=== PATIENT | male | born 1940 | race Caucasian/White ===

== ENCOUNTER → 2018-05-11 10:16 | Outpatient (CLI) | payer MEDICARE, OTHER, SELFPAY ==
--- NOTE | 2018-05-11 | DI.US.S_ITS ---
PROCEDURE: US RENAL COMPLETE INDICATIONS: HISTORY OF URINARY TRACT INFECTION/BENIGN PROSTATIC HYPERTRO TECHNIQUE: Real-time scanning was performed of the kidneys and bladder, with image documentation. COMPARISON: None. FINDINGS: Kidneys: Kidneys are normal in size. Right kidney measures 11.1 cm long; left kidney measures 11.3 cm long. Right renal cortical thickness is 1.1 cm; left renal cortical thickness is 1.1 cm. Renal cortical echotexture is normal. No hydronephrosis or nephrolithiasis. There is a 1.5 x 1.3 x 1.3 cm oval circumscribed hypoechoic cyst with posterior acoustic enhancement in the inferior left kidney, which demonstrates no vascularity on Doppler ultrasound.. Bladder: Pre-void bladder volume is 169 mL. Post-void residual is 60 mL. There is a mobile bladder stone measuring 1.1 cm. There is a possible 1.1 cm hyperechoic nonmobile mass seen along the posterior bladder wall. Miscellaneous: No free pelvic fluid. Prostate measures 6.1 x 6.6 x 5.8 cm in size and indents the adjacent bladder wall. IMPRESSION: 1. Possible 1.1 cm posterior bladder wall mass and 1.1 cm mobile bladder calculus. Recommend CT urogram, Urologic consultation, and/or cystoscopy for further assessment. 2. No hydronephrosis. 1.5 cm probable cyst in the inferior left kidney; attention on followup exams suggested. Dictated by: Moises WAN Interpreted: Oswald Segura MD on 05/11/2018 at 12:14 Approved by: Oswald Segura M.D. on 05/11/2018 at 17:23
== END ==
PROVIDERS: PCP Internal Medicine; Visit Provider Internal Medicine
DX: N40.0 Benign prostatic hyperplasia without lower urinary tract symptoms (principal); N28.1 Cyst of kidney, acquired; N21.0 Calculus in bladder; Z87.440 Personal history of urinary (tract) infections
CPT/HCPCS: 76770

== ENCOUNTER → 2018-06-17 14:20 | Outpatient (CLI) | payer MEDICARE, OTHER, SELFPAY ==
--- NOTE | 2018-06-17 | DI.CT.S_ITS ---
PROCEDURE: CT ABDOMEN PELVIS WO/W CON INDICATIONS: BLADDER MASS TECHNIQUE: Optional 5 mm thick noncontrast images acquired from the diaphragm to the symphysis pubis. After the administration of intravenous contrast, 5 mm thick images acquired from the diaphragm to the symphysis pubis after a 10-minute delay. 2 mm thick coronal and sagittal reformats were then performed of the kidneys and ureters. For radiation dose reduction, the following was used: automated exposure control, adjustment of mA and/or kV according to patient size. COMPARISON: [facility], , RENAL COMPLETE, 05/11/2018, 10:25. FINDINGS: Image quality: Excellent. Lung bases: Lung bases are clear on the left but at the uppermost imaging margin, virtually at the junction of the middle and lower thirds of the right posterior medial lung parenchyma there is an ovoid mass like lesion only partially included at the uppermost imaging margin. This measures up to 3.7 cm AP and 2.1 cm transverse. It is in a position that would be obscured by the right hilum on frontal view the chest plain film projection and by the spine on the lateral view. Heart size is normal. Urinary system: Both kidneys are normal in size, without hydronephrosis or nephrolithiasis on pre-contrast images. No perinephric fat stranding. There is normal bilateral renal enhancement. Renal calyces appear normal in morphology when filled with contrast. Opacified portions of both ureters demonstrate normal caliber. Bladder wall thickness is except for the presence of a small angular mass that measures approximately 8 x 9 mm in maximal dimension which appears to emanate from the mucosal surface of the left posterior bladder wall immediately adjacent to the distal left ureteral insertion. The left ureter itself is not dilated, and therefore this mass does not appear to impinge upon the orifice of the left ureter at this time.. No calcified bladder stones. Other solid organs: Liver is normal in size and enhancement. Gallbladder has been previously resected. Biliary system is non dilated. Pancreas enhances normally. Spleen is normal in size and enhancement. No adrenal nodules. Peritoneum and bowel: Bowel loops demonstrate normal wall thickness and caliber. No free fluid or air. Nodes and vessels: No retroperitoneal or mesenteric adenopathy by size criteria. Aorta and inferior vena cava are normal in size. Abdominal wall: No ventral hernias. Pelvis: No pathologic free pelvic fluid. No inguinal hernias or adenopathy. Bones: No suspicious bony lesions. No vertebral body compression fractures. IMPRESSION: 1. 8 x 9 mm mucosal mass lesion adjacent to the left ureteral orifice within the bladder lumen, representing areas recent sonographic concern from ultrasound study 05/11/18. 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 2. There is an unexpected finding within the uppermost margin of the medial posterior right lung that is included on this study of a mass which may be malignant in the right lower lobe. The visualized portion of this mass measures up to 3.7 by 2.1 cm and a dedicated chest CT is recommended to more accurately assess this area. This likely is unrelated to the bladder finding unless prior smoking history is the etiology of both. This is highly unlikely to represent evidence of metastatic disease from a small urothelial mass discussed above. Dictated by: Jose Hidalgo M.D. on 06/17/2018 at 16:11 Approved by: Jose Hidalgo M.D. on 06/17/2018 at 16:18
[2018-06-17 15:03] LABS: BUN Creatinine Ratio 22.7 (6-22); Blood Urea Nitrogen 25 mg/dL (9-20); Estimated Glomerular Filt Rate > 60.0 mL/min (>60)
== END ==
PROVIDERS: PCP Internal Medicine; Visit Provider Internal Medicine
DX: N32.89 Other specified disorders of bladder (principal); R91.8 Other nonspecific abnormal finding of lung field
CPT/HCPCS: 36415; 74178; 82565; 84520; Q9967

== ENCOUNTER → 2018-06-22 10:56 | Outpatient (CLI) | payer MEDICARE, OTHER, SELFPAY ==
--- NOTE | 2018-06-22 11:12 | DI.CT.S_ITS ---
PROCEDURE: CT CHEST WO CON INDICATIONS: Other nonspecific abnormal finding of lung field TECHNIQUE: Noncontrast 5 mm thick sections acquired from the pulmonary apices to the posterior costophrenic angles. 7 mm thick coronal and sagittal MIP reformats were then acquired. For radiation dose reduction, the following was used: automated exposure control, adjustment of mA and/or kV according to patient size. COMPARISON: [facility], CT, CT ABDOMEN PELVIS WO/W CON, 06/17/2018, 15:20. FINDINGS: Image quality: Excellent. Lungs and pleura: No acute air space opacities. The prior CT of the abdomen/pelvis as identified a suspected lung mass on the right at the uppermost imaging margin, not completely included on that study. This area is not well-visualized, and demonstrates an ovoid relatively sharply demarcated masslike structure in that area with several peripheral calcifications measuring up to 3.6 cm AP, 1.9 cm transverse and 1.7 cm craniocaudad. A small amount of peripheral adjacent alveolar airspace radiodensity seen at the posterior border of the structure, most convincingly demonstrated on series 6 image 41. No pleural effusions or pneumothorax. Central and peripheral airways are patent and normal in caliber. Mediastinum: Heart size is normal. No pericardial effusion. No mediastinal adenopathy by size criteria. Thoracic aorta and central pulmonary arteries are normal in size. Esophagus is normal in caliber. No hiatal hernia. Bones and chest wall: No suspicious bony lesions. No vertebral body compression fractures. No axillary or supraclavicular adenopathy by size criteria. Thyroid gland is not well-visualized by this noncontrast technique. Abdomen: Visualized upper abdominal solid organs and bowel loops appear normal in the absence of contrast. IMPRESSION: There is an ovoid soft tissue mass within the lung parenchyma of the right lower lobe, near the superior segment measuring up to 3.6 x 1.9 x 1.7 cm, with peripheral marginal calcifications and a slight degree of adjacent alveolar airspace disease. The appearance is nonspecific, and not associated with mediastinal or hilar adenopathy, and followup by nuclear medicine PET CT scanning for solitary pulmonary nodule workup is recommended. Dictated by: Jose Hidalgo M.D. on 06/22/2018 at 12:18 Approved by: Jose Hidalgo M.D. on 06/22/2018 at 13:06
== END ==
PROVIDERS: PCP Internal Medicine; Visit Provider Internal Medicine
DX: R91.8 Other nonspecific abnormal finding of lung field (principal)
CPT/HCPCS: 71250

== ENCOUNTER → 2018-10-08 09:03 | Outpatient (CLI) | payer MEDICARE, OTHER, SELFPAY ==
--- NOTE | 2018-10-08 | DI.CT.S_ITS ---
PROCEDURE: CT KIDNEY URETER BLADDER (KUB) INDICATIONS: right flank pain TECHNIQUE: Noncontrast 5 mm thick sections acquired from the diaphragms to the symphysis. 5 mm thick coronal and sagittal reformats were then performed. For radiation dose reduction, the following was used: automated exposure control, adjustment of mA and/or kV according to patient size. COMPARISON: [facility], CT, CT ABDOMEN PELVIS WO/W CON, 06/17/2018, 15:20. [facility], NM, NM PET CT FUSION SKULL 2 THIGH, 07/15/2018, 13:51. [facility], CT, CT CHEST WO CON, 06/22/2018, 11:07. FINDINGS: Image quality: Excellent. Lung bases: Lung bases are clear. Again noted is a previously described ovoid mass in the right lower lobe, unchanged in size or appearance. It measures 3.7 x 1.8 cm. Heart size is normal. Advanced atherosclerotic coronary artery calcifications. Urinary system: Both kidneys are normal in size. No kidney stones. No hydronephrosis or perinephric fat stranding. Both ureters appear non-dilated throughout their expected courses. A previous bladder stone is no longer present. The bladder is partially decompressed. There is mild bladder wall thickening. The prostate is enlarged. Other solid organs: Liver is normal in size. Unchanged 2.5 cm liver cyst. Gallbladder is surgically absent. The. Pancreas is normal in contours. Spleen is normal in size. No adrenal nodules. Peritoneum and bowel: Unenhanced bowel loops demonstrate normal wall thickness and caliber. No free fluid or air. No CT evidence of acute appendicitis. Scattered sigmoid diverticulosis without evidence of diverticulitis. Nodes and vessels: No retroperitoneal or mesenteric adenopathy by size criteria. Unchanged ascending aortic aneurysm measuring 4.7 cm. Abdominal aorta is normal in caliber. There are is atherosclerotic calcifications in the abdominal aorta. Abdominal wall: No ventral hernias. Pelvis: No free pelvic fluid. No inguinal hernias or adenopathy. Bones: No suspicious bony lesions. No vertebral body compression fractures. IMPRESSION: 1. No evidence of renal stone or ureteral stone or hydronephrosis. 2. Bladder stone no longer present. 3. Prostate enlargement. 4. Advanced coronary atherosclerotic calcifications. 5. Stable ovoid mass in the right lower lobe. Dictated by: Juan Roe M.D. on 10/08/2018 at 9:34 Approved by: Juan Roe M.D. on 10/08/2018 at 9:48
== END ==
PROVIDERS: PCP Student in an Organized Health Care Education/Training Program; Visit Provider Student in an Organized Health Care Education/Training Program
DX: R10.9 Unspecified abdominal pain (principal); N40.0 Benign prostatic hyperplasia without lower urinary tract symptoms; I25.10 Atherosclerotic heart disease of native coronary artery without angina pectoris; R91.8 Other nonspecific abnormal finding of lung field; Z90.49 Acquired absence of other specified parts of digestive tract
CPT/HCPCS: 74176

== ENCOUNTER → 2024-01-05 10:05 | Outpatient (CLI) | payer MEDICARE, OTHER, SELFPAY ==
--- NOTE | 2024-01-05 10:09 | DI.RAD.S_ITS ---
PROCEDURE: XR LUMBAR SPINE 2-3V INDICATIONS: LOW BACK PAIN TECHNIQUE: 3 views of the lumbar spine were acquired. COMPARISON: None. FINDINGS: Lumbar spine curvature and alignment: There is 9 mm of L4 anterior subluxation due to degenerate facet disease. Bones: There are no osseous abnormalities. Disc spaces: Severe L2-3, mild L3-4, moderate L4-5 and mild L5-S1 degenerative disc disease noted. There is moderate L4-5 and L5-S1 degenerative facet disease. Soft tissues: No soft tissue swelling, calcification or mass. IMPRESSION: Degeneration Dictated by: Tigre Jones M.D. on 01/06/2024 at 11:36 Approved by: Tigre Jones M.D. on 01/06/2024 at 11:37
== END ==
PROVIDERS: PCP Nurse Practitioner Family; Referring Provider Nurse Practitioner Family; Visit Provider Nurse Practitioner Family
DX: M47.816 Spondylosis without myelopathy or radiculopathy, lumbar region (principal); M47.817 Spondylosis without myelopathy or radiculopathy, lumbosacral region; M51.360 Other intervertebral disc degeneration, lumbar region with discogenic back pain only; M51.370 Other intervertebral disc degeneration, lumbosacral region with discogenic back pain only
CPT/HCPCS: 72100

== ENCOUNTER → 2024-01-07 08:40 | Outpatient (CLI) | payer MEDICARE, OTHER, SELFPAY ==
--- NOTE | 2024-01-07 08:41 | DI.US.S_ITS ---
PROCEDURE: US RENAL COMPLETE INDICATIONS: POST VOID RESIDUAL TECHNIQUE: Real-time scanning was performed of the kidneys and bladder, with image documentation. COMPARISON: [facility], , US RENAL COMPLETE, 05/11/2018, 10:25. FINDINGS: Kidneys: Kidneys are normal in size. Right kidney measures 10.8 cm long; left kidney measures 11.6 cm long. Right renal cortical thickness is 1.5 cm; left renal cortical thickness is 1.2 cm. Renal cortical echotexture is normal. No hydronephrosis or nephrolithiasis. No suspicious solid mass lesions. Left renal peripelvic cyst measuring 1.3 cm. Bladder: Pre-void bladder volume is 105 mL. Post-void residual is 90 mL. Pre-void images demonstrate no intraluminal masses or stones. On pre-void images, neither ureteral jets are noted with color Doppler interrogation. (Of note, ureteral jets may not be detectable in up to 25% of cases due to insufficient differences in specific gravity between ureteral and bladder urine). Enlarged prostate measuring 4.5 x 4.5 x 4.6 cm with volume estimated at 49 cc. Miscellaneous: No free pelvic fluid. IMPRESSION: 1. 1.3 cm left renal peripelvic cysts; otherwise unremarkable sonographic appearance of the kidneys and no hydronephrosis is seen bilaterally. 2. 90 cc postvoid residual. 3. Prostatomegaly Dictated by: Moises EPSTEIN Interpreted: Bill Delgado MD on 01/07/2024 at 9:48 Transcribed by: ANDREA on 01/14/2024 at 13:07 Approved by: Moises EPSTEIN Interpreted: Alyssa Abreu MD on 01/14/2024 at 13:09
== END ==
PROVIDERS: PCP Nurse Practitioner Family; Referring Provider Nurse Practitioner Family; Visit Provider Nurse Practitioner Family
DX: N28.1 Cyst of kidney, acquired (principal); N40.0 Benign prostatic hyperplasia without lower urinary tract symptoms; R35.0 Frequency of micturition; R35.1 Nocturia; R39.15 Urgency of urination
CPT/HCPCS: 76770

== ENCOUNTER 2024-02-11 14:10 | Emergency (ER) | payer MEDICARE, OTHER, SELFPAY ==
[2024-02-11 14:35] VITALS: BP 144/76; PULSE 78; RESP 14; TEMP 36.4; O2SAT 98; BMI 25.4
--- NOTE | 2024-02-11 15:13 | ED.LOWEXIN ---
HPI - Extremity Injury (Lower) <Leonela Hemphill PA-C - Last Filed: 02/11/24 19:46> General Chief Complaint: Extremity Injury, Lower Stated Complaint: Fall, rt hip px Time Seen by Provider: 02/11/24 15:13 Source: patient Mode of arrival: Ambulatory History of Present Illness HPI Narrative: Mr. Ramirez is a pleasant 83-year-old male with a past medical history of neuropathy who presents to the emergency department for right hip pain after a fall 1-2 months ago. Patient reports he had an accidental trip over a railroad track about 1-2 months ago and he landed on his right hip. Patient states he had no pain at the time and he got up and walked away with assistance. However states since then he has had persistent localized pain over the right hip/buttocks area. He does ambulate independently with a cane but states that the pain often keeps him up at night. He is taken 200 mg of ibuprofen without resolution of symptoms. Denies symptoms radiating down leg or numbness or tingling that is new. Denies head trauma LOC, neck pain, back pain, chest pain abdominal pain. No bowel or bladder incontinence. Related Data Home Medications Medication Instructions Recorded Confirmed ascorbic acid (vitamin C) 500 mg PO QDAY ##0 01/08/17 tablet cholecalciferol (vitamin D3) 50 PO QDAY ##0 01/08/17 mcg (2,000 unit) tablet (Vitamin D3) coenzyme Q10 100 mg capsule (Co 100 mg PO ##0 01/08/17 Q-10) vitamin A 3,000 mcg (10,000 unit) PO ##0 01/08/17 capsule vitamin E 100 unit capsule PO ##0 01/08/17 Previous Rx's Medication Instructions Recorded lidocaine 5 % topical patch 1 patch topical DAILY #15 ea 02/11/24 (Lidoderm) Allergies Allergy/AdvReac Type Severity Reaction Status Date / Time No Known Allergies Allergy Uncoded 06/04/17 12:49 Review of Systems <Leonela Hemphill PA-C - Last Filed: 02/11/24 19:46> Review of Systems ROS Unobtainable: All systems reviewed & are unremarkable except as noted in HPI and below Patient History <Leonela Hemphill PA-C - Last Filed: 02/11/24 19:46> Social History Smoking Status: Never smoker Smoking Status: Never smoker Exam <Leonela Hemphill PA-C - Last Filed: 02/11/24 19:46> Narrative Exam Narrative: GENERAL: 83 year old patient appears stated age. Well-developed patient, in no acute distress. HEAD: Atraumatic. Normocephalic. NECK: Trachea midline. Cervical ROM intact. CARDIOVASCULAR: Regular rate and rhythm. RESPIRATORY: ?Nonlabored respirations. ?Speaking in clear, full sentences. ?Clear to auscultation. GASTROINTESTINAL: Abdomen soft, non-tender, nondistended. EXTREMITIES: No edema or joint tenderness. BACK: Nontender without deformity or crepitance. No flank tenderness. Subjective pain over right buttocks. NEURO: AOx3. ?Clear speech. ?Moves all 4 extremities appropriately. Sensation intact to light touch throughout the lower extremities. SKIN: No rash or erythema of visible areas Initial Vital Signs Initial Vital Signs: Vital Signs Temperature 97.5 F L 02/11/24 14:35 Pulse Rate 78 02/11/24 14:35 Respiratory Rate 14 02/11/24 14:35 Blood Pressure 144/76 H 02/11/24 14:35 Pulse Oximetry 98 02/11/24 14:35 Oxygen Delivery Method Room Air 02/11/24 14:35 <Salvador Briones MD - Last Filed: 02/20/24 12:57> Initial Vital Signs Initial Vital Signs: Vital Signs Temperature 97.5 F L 02/11/24 14:35 Pulse Rate 78 02/11/24 14:35 Respiratory Rate 14 02/11/24 14:35 Blood Pressure 144/76 H 02/11/24 14:35 Pulse Oximetry 98 02/11/24 14:35 Oxygen Delivery Method Room Air 02/11/24 14:35 Course <Leonela Hemphill PA-C - Last Filed: 02/11/24 19:46> Orders Ordered: Discontinued Medications Acetaminophen (Acetaminophen 325 Mg Tablet) 650 mg PO NOW ONE Stop: 02/11/24 15:25 Last Admin: 02/11/24 15:33 Dose: 650 mg Documented By: SPF Ibuprofen (Ibuprofen 400 Mg Tablet) 400 mg PO NOW ONE Stop: 02/11/24 15:25 Last Admin: 02/11/24 15:33 Dose: 400 mg Documented By: SPF Lidocaine (Lidocaine 5% Patch) 1 each TOP NOW ONE Stop: 02/11/24 15:25 Last Admin: 02/11/24 15:33 Dose: 1 each Documented By: SPF Vital Signs Vital signs: Vital Signs - 8 hr 02/11/24 14:35 02/11/24 17:54 Temperature 97.5 F L Pulse Rate 78 70 Respiratory Rate 14 20 Blood Pressure 144/76 H 140/80 Pulse Oximetry 98 100 Oxygen Delivery Method Room Air Room Air <Salvador Briones MD - Last Filed: 02/20/24 12:57> Orders Ordered: Discontinued Medications Acetaminophen (Acetaminophen 325 Mg Tablet) 650 mg PO NOW ONE Stop: 02/11/24 15:25 Last Admin: 02/11/24 15:33 Dose: 650 mg Documented By: SPF Ibuprofen (Ibuprofen 400 Mg Tablet) 400 mg PO NOW ONE Stop: 02/11/24 15:25 Last Admin: 02/11/24 15:33 Dose: 400 mg Documented By: SPF Lidocaine (Lidocaine 5% Patch) 1 each TOP NOW ONE Stop: 02/11/24 15:25 Last Admin: 02/11/24 15:33 Dose: 1 each Documented By: SPF Vital Signs Vital signs: Vital Signs - 8 hr 02/11/24 14:35 02/11/24 17:54 Temperature 97.5 F L Pulse Rate 78 70 Respiratory Rate 14 20 Blood Pressure 144/76 H 140/80 Pulse Oximetry 98 100 Oxygen Delivery Method Room Air Room Air MDM - Extremity Injury (Lower) <Leonela Hemphill PA-C - Last Filed: 02/11/24 19:46> Medical Records Attestation: I reviewed the patient's medical records. Imaging Data R Hip and Pelvis X-Ray: Radiologist's Impression: PROCEDURE: XR HIP W PEL IF DONE RT 2V INDICATIONS: right hip pain after fall 1-2 months ago TECHNIQUE: AP pelvis with lateral view(s) of the right hip(s). COMPARISON: None. FINDINGS: Bones: No fractures or dislocations. Pelvic ring appears intact. No suspicious bony lesions. Moderate diffuse osteoarthritis and enthesopathy. Soft tissues: The visualized bowel gas pattern is normal. No suspicious soft tissue calcifications. IMPRESSION: No acute traumatic abnormality. Lumbar Spine X-Ray: Radiologist's Impression: PROCEDURE: XR LUMBAR SPINE 2-3V INDICATIONS: right hip pain after fall 1-2 months ago TECHNIQUE: 3 views of the lumbar spine were acquired. COMPARISON: [facility], CR, XR LUMBAR SPINE 2-3V, 01/05/2024, 10:07. FINDINGS: Bones: 5 [id number] vertebrae are present. Unchanged anterolisthesis of L4 on L5. Stable moderately decreased disc height at L2-L3. No vertebral body compression fractures. No suspicious bony lesions. Soft tissues: Overlying bowel gas pattern is normal. No suspicious soft tissue calcifications. Moderate atheromatous calcification. IMPRESSION: No acute bony abnormality. MDM Narrative Medical decision making narrative: 83-year-old male with a past medical history of neuropathy who presents to the emergency department for right hip pain after a fall 1-2 months ago. Differential diagnosis includes but is not limited to right hip fracture, right sacral fracture, lumbar fracture, lumbar radiculopathy, sacroiliitis, contusion, etc. On exam patient is in no acute distress, nontoxic appearing, vital signs appropriate, ambulatory. He does have subjective pain and tenderness over right buttocks. No midline cervical thoracic or lumbar pain. No radiation pain down the leg. Bilateral legs are neurovascularly intact. We will treat Tylenol ibuprofen lidocaine patch and obtain x-ray of lumbar spine and right hip/pelvis. Patient's pain improved with ED management. X-rays reveal no acute bony abnormality. Patient continues to ambulate independently without difficulty. Prescribed him lidocaine patches for home and recommended ibuprofen/Tylenol. Patient does not currently have a primary care doctors we discussed the importance of following up with PCP and also potentially Orthopedics for his right hip pain. ER return precautions were discussed. Patient verbalized understanding of all information and is happy with the plan. He is stable for discharge. Discharge Plan Departure Patient Disposition: Home Clinical Impression: Hip pain, right Fall Qualifiers: Encounter type: initial encounter Qualified Code(s): W19.XXXA - Unspecified fall, initial encounter Activity Restrictions/Additional Instructions: Today you were evaluated for right hip pain after a fall. We performed x-rays of your low back and your right hip and pelvis which revealed no fractures. 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 Please rest, do gentle stretching and exercises, and follow up with the primary care doctor. You may also follow up with an patient transition specialist for further evaluation. I recommend [facility] Dr. Jenkins. Call [phone] to schedule an appointment. Please take Ibuprofen (Motrin/Advil) or Acetaminophen (Tylenol) for pain. These are available over the counter. You may take Ibuprofen 400 mg every 6-8 hours with food for pain. You may also take Acetaminophen 650 mg every 4-6 hours for pain. Do not exceed 3000 mg of Tylenol a day as this can cause liver damage. Do not drink alcohol with either of these medications. I have sent lidocaine patches to the [facility] pharmacy. For your chronic Urology concerns, I recommend Dr. Caballero here at [place]. Call [phone]. Please follow up with your primary care doctor within the next 2-3 days for ER follow-up. (If you do not have a PCP you can call [phone]. ?to schedule an appointment with an [facility] Primary Care Provider) IF YOU DEVELOP ANY NEW OR WORSENING SYMPTOMS, RETURN TO THE ER! Please read the attached instructions, they highlight more specific treatments and interventions for you at home. Thank you for letting me participate in your care, Leonela Hemphill PA-C Prescriptions: New lidocaine [Lidoderm] 5 % adhesive patch,medicated 1 patch topical DAILY Qty: 15 0RF Rx Instructions: leave on most painful area for up to 12 hrs No Action vitamin E 100 unit capsule PO Qty: 0 vitamin A 10,000 unit capsule PO Qty: 0 ascorbic acid (vitamin C) 500 mg tablet PO QDAY Qty: 0 coenzyme Q10 [Co Q-10] 100 MG capsule 100 mg PO Qty: 0 cholecalciferol (vitamin D3) [Vitamin D3] 2,000 unit tablet PO QDAY Qty: 0 Referrals: Miscellaneous,DoctorMD [Primary Care Provider] - Stand Alone Forms: Patient Portal/API/Survey ED Sign-out <Salvador Briones MD - Last Filed: 02/20/24 12:57> Cosign ED Attending Krystaature Attestation: I was immediately available in the department for consultation. ?This documentation has been reviewed and I agree with assessment and plan. Supervised by Salvadro Briones MD
--- NOTE | 2024-02-11 15:23 | DI.RAD.S_ITS ---
PROCEDURE: XR LUMBAR SPINE 2-3V INDICATIONS: right hip pain after fall 1-2 months ago TECHNIQUE: 3 views of the lumbar spine were acquired. COMPARISON: [facility], , XR LUMBAR SPINE 2-3V, 01/05/2024, 10:07. FINDINGS: Bones: 5 [id number] vertebrae are present. Unchanged anterolisthesis of L4 on L5. Stable moderately decreased disc height at L2-L3. No vertebral body compression fractures. No suspicious bony lesions. Soft tissues: Overlying bowel gas pattern is normal. No suspicious soft tissue calcifications. Moderate atheromatous calcification. IMPRESSION: No acute bony abnormality. Dictated by: Bill Delgado M.D. on 02/11/2024 at 16:55 Approved by: Bill Delgado M.D. on 02/11/2024 at 16:56
--- NOTE | 2024-02-11 15:23 | DI.RAD.S_ITS ---
PROCEDURE: XR HIP W PEL IF DONE RT 2V INDICATIONS: right hip pain after fall 1-2 months ago TECHNIQUE: AP pelvis with lateral view(s) of the right hip(s). COMPARISON: None. FINDINGS: Bones: No fractures or dislocations. Pelvic ring appears intact. No suspicious bony lesions. Moderate diffuse osteoarthritis and enthesopathy. Soft tissues: The visualized bowel gas pattern is normal. No suspicious soft tissue calcifications. IMPRESSION: No acute traumatic abnormality. Dictated by: Bill Delgado M.D. on 02/11/2024 at 16:56 Approved by: Bill Delgado M.D. on 02/11/2024 at 16:58
[2024-02-11] MEDS: LIDOCAINE 5% PATCH 1 EACH TOP (15:33)
[2024-02-11] MEDS: IBUPROFEN 400 MG TABLET PO (15:33)
[2024-02-11] MEDS: ACETAMINOPHEN 325 MG TABLET 650 MG PO (15:33)
[2024-02-11 17:54] VITALS: BP 140/80; PULSE 70; RESP 20; O2SAT 100
== END 2024-02-11 17:57 | disposition home or self-care (01) ==
PROVIDERS: Emergency Provider Physician Assistant
DX: M25.551 Pain in right hip (principal); W19.XXXA Unspecified fall, initial encounter
CPT/HCPCS: 72100; 73502; 99283

== ENCOUNTER → 2024-03-02 14:49 | Outpatient (CLI) | payer MEDICARE, OTHER, SELFPAY ==
[2024-03-02 15:43] LABS: Blood Urea Nitrogen 27 mg/dL (9-20); Calcium 9.9 mg/dL (8.4-10.2); Carbon Dioxide 28 mmol/L (22-32); Chloride 104 mmol/L (98-107); Estimated Glomerular Filt Rate > 60 mL/min (>60); Glucose 74 mg/dL (80-110); HEMOLYSIS < 15 (0-50); Potassium 4.2 mmol/L (3.4-5.1); Sodium 139 mmol/L (137-145)
== END ==
PROVIDERS: Referring Provider Urology; Visit Provider Urology
DX: R31.0 Gross hematuria (principal); Z87.442 Personal history of urinary calculi
CPT/HCPCS: 36415; 80048

== ENCOUNTER → 2024-03-12 09:06 | Outpatient (CLI) | payer MEDICARE, OTHER, SELFPAY ==
--- NOTE | 2024-03-12 09:11 | DI.CT.S_ITS ---
PROCEDURE: CT ABDOMEN PELVIS WO/W CON INDICATIONS: Gross hematuria, history of kidney stones TECHNIQUE: After the administration of oral contrast, 5 mm thick sections acquired from the diaphragms to the iliac crests. After the administration of intravenous contrast, 5 mm thick sections acquired from the diaphragms to the symphysis. 5 mm thick coronal and sagittal reformats were acquired. For radiation dose reduction, the following was used: automated exposure control, adjustment of mA and/or kV according to patient size. COMPARISON: [facility], CT, CT ABDOMEN PELVIS WO/W CON, 06/17/2018, 15:20. FINDINGS: Image quality: Diagnostic. Lower Chest: Very heavy coronary artery calcification. There is a chronic, smoothly marginated ovoid mass in the posteromedial right lower lobe with punctate peripheral calcification measuring about 3.3 x 2.0 cm, not significantly changed. Mild distal esophageal wall thickening and trace hiatal hernia. ABDOMEN: Liver: Normal size. Mild steatosis. Thin-walled, lobulated 2.7 cm subcapsular cystic lesion anteriorly. No solid mass. Gallbladder: Surgically absent. Biliary ducts: Appropriate biliary tree caliber post cholecystectomy. Pancreas: Normal size and morphology without visible ductal dilatation or inflammation. Spleen: Size is within normal limits. Adrenal Glands: Low-density 1.5 cm medial limb right adrenal nodule, minimally enlarged. No left adrenal nodules. Kidneys and Ureters: Normal size kidneys. No hydronephrosis or nephrolithiasis. A few small parapelvic cysts present bilaterally. Symmetric enhancement. A few tiny cortical hypodensities bilaterally. No hydroureter or ureteral calcifications. Stomach and Bowel: Stomach and small bowel loops are normal caliber. Diverticulosis in the descending and sigmoid colon. Otherwise normal colon. Peritoneum: No abnormal intraperitoneal fluid. No free air. Ventral Wall: No significant ventral hernia. Abdominal Nodes: No retroperitoneal or mesenteric adenopathy by size criteria. Vessels: The abdominal aorta, IVC, and portal vein are of normal caliber. Moderate abdominal aortic atherosclerotic calcification. PELVIS: Pelvic Organs: The prostate gland is enlarged measuring roughly 6.4 x 6.5 x 6.4 cm. there is an irregular TURP defect in the prostate gland near the base. There are several coarse calcifications along or within the TURP defect. Bladder: The bladder is partially distended. Tiny intramural diverticula. No focal bladder wall thickening or intraluminal mass. Pelvic Nodes: No enlarged lymph nodes. Miscellaneous: Small fat containing left inguinal hernia. Bones: No aggressive osseous abnormality. Degenerative changes. Sacroiliac joint osteophytosis anteriorly. IMPRESSION: Enlarged prostate gland containing irregular defect probably associated calcifications. Cystoscopy may be helpful. No evidence of upper urinary tract calcification, obstruction, or malignancy. Minimal enlargement in benign right adrenal adenoma. Marked coronary artery calcification. Dictated by: Alecia Villanueva M.D. on 03/12/2024 at 10:36 Approved by: Alecia Villanueva M.D. on 03/12/2024 at 10:52
== END ==
LOC: CT 09:10
PROVIDERS: Referring Provider Urology; Visit Provider Urology
DX: R31.0 Gross hematuria (principal); I25.10 Atherosclerotic heart disease of native coronary artery without angina pectoris; N40.0 Benign prostatic hyperplasia without lower urinary tract symptoms; D35.01 Benign neoplasm of right adrenal gland; K76.0 Fatty (change of) liver, not elsewhere classified; R91.8 Other nonspecific abnormal finding of lung field; K57.30 Diverticulosis of large intestine without perforation or abscess without bleeding; K40.90 Unilateral inguinal hernia, without obstruction or gangrene, not specified as recurrent; Z90.49 Acquired absence of other specified parts of digestive tract; Z87.442 Personal history of urinary calculi
CPT/HCPCS: 74178; Q9967

== ENCOUNTER → 2024-04-28 08:00 | Outpatient (CLI) | payer MEDICARE, OTHER, SELFPAY ==
--- NOTE | 2024-04-28 08:01 | DI.ECHO.S_ITS ---
[facility] : : [address] : : [place] : : [id number] : : Phone: [phone] Echocardiogram Report + + :Name: KERRI STEVENSON Study Date: 04/28/2024 Height: 76 in : :Hospital ReadingLocation: Weight: 215 lb : : Gender: Male BSA: 2.3 m2 : :: 1940 Age: 83 yrs BP: 157/86 mmHg: :Reason For Study: SYSTOLIC MURMUR, CAD : :Ordering Physician: SOURAV, : :ELIAN Martell Performed By: Elvira Fields : :Referring: ELIAN BENJAMIN : + + Interpretation Summary Ascending aorta of 4.7cm. Unusual calcification of unclear significance noted in the subvalvular area abutting the aortic valve. Normal biventricular size and systolic function. LVEF is 65-70% Mild aortic regurgitation is noted. Other findings as below. No previous echo images are available for comparison. Dedicated CTA chest is advised to further evaluate his ascending aorta. Procedure: The study quality was technically adequate. A two-dimensional transthoracic echocardiogram with color flow and Doppler was performed. There is no prior echocardiogram noted for this patient. The patient was in sinus rhythm with heart rates between 58-67 bpm during the exam. Left Ventricle: The left ventricle is normal in size. Left ventricular wall thickness is mildly increased. The ejection fraction is estimated to be 65- 70%. Right Ventricle: The right ventricle is normal in size and function. Atria: The left atrial size is normal. Right atrial size is normal. There is no Doppler evidence for an interatrial shunt. Mitral Valve: The mitral valve leaflets appear to open well. There is no mitral regurgitation noted. Aortic Valve: The aortic valve is trileaflet. Subvalvular calcification visualized. There is mild aortic valve sclerosis. There is no hemodynamically significant valvular aortic stenosis. There is mild aortic regurgitation. Tricuspid Valve: The tricuspid valve leaflets are thin and pliable. No tricuspid regurgitation. Pulmonary artery pressures cannot be estimated because of the lack of a measurable TR jet velocity. Pulmonic Valve: The pulmonic valve leaflets are thin and pliable; valve motion is normal. Great Vessels: The aortic root is normal size. The ascending aorta is moderately enlarged. The IVC is of normal diameter and collapses greater than 50% with a sniff. This suggests a low right atrial pressure of 3 mm Hg. Pericardium/ Pleura There is no pericardial effusion. There is no pleural effusion. MMode/2D Measurements & Calculations LVIDd: 5.0 cm LVOT diam: 2.6 cm LVIDs: 3.1 cm Ao root diam: 3.9 cm FS: 37.1 % asc Aorta Diam: 4.6 cm IVSd: 1.2 cm LVPWd: 1.0 cm LV anderson. diameter/BSA (cm/m^2): 2.2 LV sys. diameter/BSA (cm/m^2): 1.4 LA A2 area: 21.3 cm2 RA long axis: 4.9 cm LA A4 area: 17.6 cm2 RA area: 14.9 cm2 LA length (vol): 5.5 cm RA vol: 38.8 ml LA vol: 57.6 ml RA : 17.0 ml/m2 LA vol index: 25.2 ml/m2 IVC diam: 1.0 cm RVD1 (basal): 3.7 cm RVD2 (mid): 2.6 cm TAPSE: 2.1 cm Doppler Measurements & Calculations Ao V2 max: 198.0 cm/sec LVOT Max Prashant: 108.2 cm/sec Ao V2 mean: 137.4 cm/sec LV V1 max P.7 mmHg Ao max P.4 mmHg LV V1 VTI: 24.9 cm Ao mean P.8 mmHg ZAKI(I,D): 3.2 cm2 Ao V2 VTI: 41.6 cm ZAKI(V,D): 2.9 cm2 sev ratio: 0.60 ZAKI indexed to BSA (cm^2/m^2): 1.4 MV E max prashant: 51.3 cm/sec PA V2 max: 103.3 cm/sec MV A max prashant: 89.5 cm/sec PA V2 mean: 71.7 cm/sec MV E/A: 0.57 PA mean P.3 mmHg Med Peak E' Prashant: 4.5 cm/sec PA pr(Accel): 26.3 mmHg E/E' med: 11.5 Lat Peak E' Prashant: 6.5 cm/sec E/E' lat: 7.8 E/e' average: 9.7 MV dec time: 0.34 sec SV(LVOT): 133.2 ml Reading Physician:09:22 AM
== END ==
PROVIDERS: PCP Family Medicine; Referring Provider Family Medicine; Visit Provider Family Medicine
DX: I35.1 Nonrheumatic aortic (valve) insufficiency (principal); I25.10 Atherosclerotic heart disease of native coronary artery without angina pectoris; R01.1 Cardiac murmur, unspecified; I77.89 Other specified disorders of arteries and arterioles
CPT/HCPCS: 93306

== ENCOUNTER → 2024-05-01 10:00 | Outpatient (CLI) | payer MEDICARE, OTHER, SELFPAY ==
[2024-05-01 11:16] LABS: Hematocrit 46.5 % (41-53); Mean Corpuscular HGB Conc 34.5 % (30-36); Mean Corpuscular Hemoglobin 31.9 PG (26-34); Mean Corpuscular Volume 92.4 fL (80-100); Platelet Count 169 X10^3/uL (150-400); Red Blood Cell Count 5.03 X10^6/uL (4.5-5.9); White Blood Cell Count 6.4 X10^3/uL (4.5-11.0)
[2024-05-01 11:48] LABS: Cholesterol 219 mg/dL (140-199); HDL Cholesterol 51 mg/dL (40-60); LDL Cholesterol Calculated 149 mg/dL (<100); Triglycerides 97 mg/dL (35-150)
[2024-05-01 11:56] LABS: NT-proBNP (BNP-Adult 18+) 57 pg/mL (<450)
== END ==
PROVIDERS: Urology; PCP Family Medicine; Referring Provider Family Medicine; Visit Provider Family Medicine
DX: I25.10 Atherosclerotic heart disease of native coronary artery without angina pectoris (principal); R06.00 Dyspnea, unspecified; G62.9 Polyneuropathy, unspecified; N42.89 Other specified disorders of prostate
CPT/HCPCS: 80061; 83880; 85027

== ENCOUNTER 2024-05-04 07:33 | Day surgery (SDC) | payer MEDICARE, OTHER, SELFPAY ==
[2024-05-03 12:25] VITALS: BMI 25.8
[2024-05-04] VITALS (9 sets, daily range): BP systolic 146–170; BP diastolic 80–89; PULSE 68–80; RESP 13–18; TEMP 36.2–36.7; O2SAT 93–97; BMI 26.2
--- NOTE | 2024-05-04 | PATH_ITS ---
[facility] Accession Number: [id number] No. of containers..02 Tissue . 01 Material submitted: . PART A: prostate - PROSTATE STONES PART B: prostate - PROSTATE CHIPS . 01 Diagnosis: A. PROSTATE STONES, REMOVAL: Specimen is submitted for gross identification only. No tissue is submitted for histologic examination. . B. PROSTATE CHIPS, TRANSURETHRAL PROSTATE TISSUE RESECTION: Benign prostatic parenchyma, weight 7 grams, with nodular stromal, and glandular hypertrophy, mild chronic inflammation, and dystrophic calcifications. Negative for high-grade prostatic intraepithelial neoplasia, or invasive carcinoma. Benign urothelium with reactive changes. . MRV 05/06/2024 1511 Local . 01 Electronically signed: . Uday Valdez MD, Pathologist NPI- [id number] . 01 Gross description: . A. Received in formalin with two patient identifiers and prostate stones, are multiple coleman to brown pointed irregular stones ranging from 0.5 x 0.4 x 0.3 cm to 1.0 x 0.5 x 0.5 cm. No soft tissue is identified. No sections are submitted. The specimen is for gross only evaluation. B. Received in formalin with two patient identifiers and prostate chips, are multiple coleman soft tissue fragments admixed with a small amount of hemorrhagic material weighing 7 grams and aggregating to 6.2 x 5.2 x 1.3 cm. Multiple coleman to brown roughened calculi are identified, up to 1.0 cm in greatest dimension. Submitted in B1-B6. ([id number]) /MRV 05/05/2024 1439 Local . 01 Pathologist provided ICD-10: N42.0 . 01 CPT . 107032, 165104 Specimen Comment: A courtesy copy of this report has been sent to [phone] Performed at: [address] [facility], [place], [place] [id number] MD Bill Sheppard MD Phone: [phone]
[2024-05-04] MEDS: ACETAMINOPHEN 325 MG TABLET 975 MG PO (08:00)
[2024-05-04] MEDS: LACTATED RINGERS 1,000 ML 42 ML IV (08:01)
--- NOTE | 2024-05-04 09:02 | PM.PREOP ---
Pre-operative Note COVID-19 COVID-19 status: Not tested Interval Note History & Physical reviewed/Exam performed by Physician: Yes Changes to H&P: No
[2024-05-04] MEDS: CEFAZOLIN 2 GM/100 ML PREMIX 100 ML IV (09:39)
--- NOTE | 2024-05-04 10:02 | SUR.OPER ---
Lithotomy on padded OR bed, head on pillow, arms secured on padded arm boards at <90 degrees abduction. Legs secured in padded yellow fins stirrups.
--- NOTE | 2024-05-04 11:16 | PM.OP.1 ---
Procedure & Clinicians Procedure: Transurethral resection of prostate and Transurethral resection of prostatic dystrophic calcifications, cystolitholapaxy mechanical of dislodged prostate calcifications. Same procedure as scheduled: Yes Indications: This 83-year-old gentleman presented with complaints of hematuria dysuria and underwent flexible cystoscopy in the office which revealed dystrophic calcification of the prostatic fossa and prostatic fossa calcifications. He presents this time for resection and removal of the stones. Surgeon: Salvador Caballero Click Yes if Unassisted: Yes Anesthesia Type: General Operative Notes Findings: At procedure: Urethral meatus was normal urethra was normal along its length and sphincter as well coapted. Prostatic fossa showed some obstructive character and there were numerous stones and dystrophic calcifications distributed throughout the prostate. There was some evidence of prior resection. Ureteral orifices were normal position and clear efflux and were undisturbed during the procedure. Within the bladder there was no evidence of tumor or other worrisome lesion. There were no stones within the bladder there were no mucosal lesions that would be worrisome for malignancy. At the end of the procedure it appeared that all stones he had been removed and the prostatic fossa did appear to be widely patent. A 22 Ukrainian 5 cc Richards catheter was left in place with 15 cc of sterile water in the balloon. The prostate chips and calcifications were sent as specimens and they were as much as could be possible though the dystrophic calcifications of course went with the prostate chips. Closure Type: not applicable Specimen(s): other (Prostate chips and 2. Prostatic calcifications) Prosthetic devices, grafts, tissues, transplants, or devices: 22 Ukrainian 5 cc Richards catheter with 15 cc in the balloon was left through the urethra prostate and end of the bladder to gravity drainage. Applied: catheter (Twenty-two Ukrainian [address] catheter with 50 cc of sterile water in the balloon.) Estimated Blood Loss (mL): 25 Blood products transfused: none Procedure in detail: Procedure in detail: After informed consent was obtained, the patient was identified brought to the operating room where he was placed in a supine position on the table. Once there anesthesia was induced and maintained. Ensuring an adequate level of anesthesia the patient was transitioned to the lithotomy position where he was prepped and draped in his sterile fashion for Transurethral procedure. After ensuring an adequate level of anesthesia, time-out, administration of antibiotics a 22 Ukrainian cystoscope was passed through the urethra and into the prostatic fossa. There the numerous stones and dystrophic calcifications were identified. Using the scope a number of the stones were then pushed into the bladder. With this done the cystoscope was exchanged for the resectoscope which was put in place under direct vision. Then using the working element the dystrophic calcifications and prostatic chips and prostate were resected. Prior to this the position of the ureteral orifices was noted and they were preserved. Again this resection proceeded from the bladder neck toward the verumontanum. Points of bleeding were controlled with the electrocautery. Ellik evacuator was then used to evacuate some of the prostate chips and stones. Number the stones were too large to pass through the resectoscope so it was removed and a cystoscope put back in place and a mechanical lithotrite then used to break up the prostatic stones which he had been dislodged into the bladder. He link evacuator was then employed to evacuate the stone fragments. This was done after the cystoscope was removed and the resectoscope replaced. Again the resection continued and further dystrophic calcification and prostatic chips were resected and then using the Ellik evacuator removed. At the end of the procedure the prostatic fossa did appear to be fairly widely patent. All stones were removed from the bladder and prostate. And ureteral orifices were normal position with clear efflux. Points of bleeding had been controlled with the electrocautery and the effluent was clear to a light pink. With the bladder full the scope was removed and the patient had a vigorous stream. The 22 Ukrainian catheter was then passed through the urethra prostate and into the bladder without difficulty. The balloon was filled with 15 cc of sterile water and placed to gravity drainage. The patient was then awakened having tolerated the procedure well and transferred to the postanesthesia care unit with a Richards catheter to gravity drainage. There were no complications. Complications: none Post-operative Condition: stable Disposition: PACU Plan for aftercare: Patient to be discharged home with a Richards catheter to follow up in my office on for catheter removal and ?voiding trial?.
--- NOTE | 2024-05-04 11:34 | SUR.PHASEI ---
Clarified schroeder irrigation order is sterile water, not saline per Dr. Caballero.
== END 2024-05-04 12:20 | disposition home or self-care (01) ==
PROVIDERS: PCP Family Medicine; Referring Provider Urology; Visit Provider Urology
PROC: 0VT08ZZ Resection of Prostate, Via Natural or Artificial Opening Endoscopic (ICD-10-PCS; CPT 52601; principal; 2024-05-04 09:15)
DX: N42.0 Calculus of prostate (principal); R31.9 Hematuria, unspecified; R30.0 Dysuria; I25.2 Old myocardial infarction
CPT/HCPCS: 52601; 52317; 82962; J0330; J0690; J1100; J2405; J2704; J3010

== ENCOUNTER → 2024-05-25 13:27 | Outpatient (CLI) | payer MEDICARE, OTHER, SELFPAY | PROVIDERS: PCP Family Medicine; Visit Provider Urology | DX: N40.1 Benign prostatic hyperplasia with lower urinary tract symptoms (principal); N13.8 Other obstructive and reflux uropathy; Z87.898 Personal history of other specified conditions | CPT/HCPCS: 87086 ==

== ENCOUNTER → 2024-05-25 14:04 | Outpatient (CLI) | payer MEDICARE, OTHER, SELFPAY ==
--- NOTE | 2024-05-25 14:06 | DI.CT.S_ITS ---
PROCEDURE: CT ANGIO CHEST INDICATIONS: Ascending aorta dilation, coronary calcification TECHNIQUE: After the administration of intravenous contrast, 2.5 mm thick sections acquired from the lung apices to the posterior lung bases. Maximum intensity projection (MIP) oblique sagittal reformats were then acquired parallel to the aortic arch. For radiation dose reduction, the following was used: automated exposure control. COMPARISON: CT, CT CHEST WO CON, 06/22/2018, 11:07. [facility], CT, CT ABDOMEN PELVIS WO/W CON, 03/12/2024, 9:35. FINDINGS: Image quality: Excellent. Aorta: Ascending thoracic aorta measures 4.9 cm in transverse dimension. Prior CT chest images are not available for comparison, only report, without notation of aneurysm. Lower Neck: No enlarged lymph nodes. Thyroid: No thyroid nodules which require sonographic follow up, per consensus guidelines. Axillae: No enlarged lymph nodes. Chest Wall: Unremarkable. Bones: Unremarkable. Lungs and Pleura: No pneumothorax or pleural effusions. Lower lobe mass measuring 3.7 x 2.2 cm compared to 3.2 x 2.1 cm. It was identified in 2019 measuring 3.6 x 1.9 x 1.7 cm. There is no previous hypermetabolic activity on PET. 2 mm pleural based left lateral juxta fissural nodule series 5, image 174. Heart: Heart size is normal. No pericardial effusion. Thoracic Vessels: Pulmonary arteries demonstrate normal size. Mediastinum and Michelle: No enlarged lymph nodes. Esophagus: No wall thickening. Mild hiatal hernia. Upper Abdomen: Simple hepatic cyst. Hepatic steatosis. 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 Dictated by: Alyssa Abreu M.D. on 05/25/2024 at 16:58 Approved by: Alyssa Abreu M.D. on 05/25/2024 at 17:07
[2024-05-25 14:33] LABS: Estimated Glomerular Filt Rate 55 mL/min (>60)
== END ==
PROVIDERS: Physician Assistant; PCP Family Medicine; Referring Provider Family Medicine; Visit Provider Family Medicine
DX: I77.810 Thoracic aortic ectasia (principal); I25.10 Atherosclerotic heart disease of native coronary artery without angina pectoris; K76.89 Other specified diseases of liver; R91.8 Other nonspecific abnormal finding of lung field; K44.9 Diaphragmatic hernia without obstruction or gangrene; K76.0 Fatty (change of) liver, not elsewhere classified; N40.1 Benign prostatic hyperplasia with lower urinary tract symptoms; N13.8 Other obstructive and reflux uropathy; Z87.898 Personal history of other specified conditions
CPT/HCPCS: 36415; 51798; 71275; 81002; 82565; 87086; Q9967

== ENCOUNTER → 2024-06-15 14:09 | Outpatient (CLI) | payer MEDICARE, OTHER, SELFPAY | PROVIDERS: PCP Family Medicine; Visit Provider Urology | DX: N40.1 Benign prostatic hyperplasia with lower urinary tract symptoms (principal); N13.8 Other obstructive and reflux uropathy; N32.89 Other specified disorders of bladder; R35.0 Frequency of micturition; R39.15 Urgency of urination; R35.1 Nocturia; Z87.898 Personal history of other specified conditions | CPT/HCPCS: 51798; 87086; 99213 ==

== ENCOUNTER 2024-09-09 09:24 | Emergency (ER) | payer MEDICARE, OTHER, SELFPAY ==
[2024-09-09 09:38] VITALS: BP 124/81; PULSE 65; RESP 14; TEMP 36.1; O2SAT 98; BMI 26.2
--- NOTE | 2024-09-09 09:42 | DI.RAD.S_ITS ---
PROCEDURE: XR SHOULDER LT MIN 2V INDICATIONS: fall TECHNIQUE: A total of 3 views of the shoulder were acquired. COMPARISON: None. FINDINGS: Bones: No definite fractures or dislocations but there is moderate arthritic change at the AC joint with slight irregularity of the cortical margins as result, which could obscure visualization of a nondisplaced acute fracture. No suspicious bony lesions. Visualized ribs appear intact. Soft tissues: Several suspicious soft tissue calcifications overlie the greater tuberosity area consistent with calcific bursitis. 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 Calcific bursitis appears present adjacent to the greater tuberosity. Dictated by: Jose Hidalgo M.D. on 09/09/2024 at 10:26 Approved by: Jose Hidalgo M.D. on 09/09/2024 at 10:28
--- NOTE | 2024-09-09 11:28 | ED.FALL ---
HPI - Fall <Leonela Hemphill PA-C - Last Filed: 09/09/24 18:52> General Chief Complaint: Fall Stated Complaint: Fell hurt left shoulder , Not on blood thinners Time Seen by Provider: 09/09/24 11:28 Source: patient Mode of arrival: Ambulatory History of Present Illness HPI Narrative: Mr. Ramirez is a very pleasant 84-year-old male with a past medical history of CAD, hypertension, GERD, BPH, neuropathy who presents to the emergency department for left shoulder pain after fall yesterday. Patient has unsteady gait at baseline, uses a cane, was watering his nielson and using his cane when he got off balance and fell, he partially caught himself on the way down but then ended up hitting his left shoulder on the ground. He now is having pain of the lateral left shoulder and is unable to abduct the shoulder. No numbness or tingling. He did not hit his head, lose consciousness, or sustain any other injuries to the remainder of the left arm, right arm, lower extremities, head, neck, back. Denies precipitating symptoms of chest pain, shortness of breath, lightheadedness, dizziness, nausea, vomiting, abdominal pain. He is ambulatory independently. No blood thinners. Related Data Home Medications ?Medication ?Instructions ?Recorded ?Confirmed gabapentin 100 mg capsule 100 mg PO BID 03/02/24 06/15/24 Previous Rx's ?Medication ?Instructions ?Recorded hydrocodone 5 mg-acetaminophen 325 1 tab PO BEDTIME PRN pain #20 tabs 04/07/24 mg tablet oxybutynin chloride 5 mg tablet 5 mg PO BID-TID PRN bladder spasms 05/04/24 #7 tabs hydrocodone 5 mg-acetaminophen 325 1 tab PO Q4-6H PRN pain #12 tabs 09/09/24 mg tablet Allergies Allergy/AdvReac Type Severity Reaction Status Date / Time phenazopyridine (From AdvReac Severe Swelling Verified 09/09/24 09:38 Pyridium) of Lip/Tongue/Throat, neuropathy, heartburn Review of Systems <Leonela Hemphill PA-C - Last Filed: 09/09/24 18:52> Review of Systems ROS Unobtainable: All systems reviewed & are unremarkable except as noted in HPI and below Patient History <Leonela Hemphill PA-C - Last Filed: 09/09/24 18:52> Medical History Nocturia more than twice per night Urinary urgency Urinary frequency Calcification of prostate NSTEMI (non-ST elevated myocardial infarction) Peripheral neuropathy Cardiac angina History of gross hematuria Dystrophic calcification of bladder Penile pain BPH w urinary obs/LUTS Asymptomatic microscopic hematuria Splitting of urinary stream History of kidney stones Gross hematuria Hx of nephrolithotomy with removal of calculi Cholecystectomy planned Kidney stones High blood pressure GERD (gastroesophageal reflux disease) Coronary heart disease Surgical History H/O transurethral resection of prostate (~1990) Stented coronary artery Family History Mother Cancer Social History marital status: number of children: 2 occupational status: previously employed Smoking Status: Unknown if ever smoked alcohol intake: never caffeine: No Type(s) of exercise: none Smoking Status: Unknown if ever smoked Exam <Leonela Hemphill PA-C - Last Filed: 09/09/24 18:52> Narrative Exam Narrative: GENERAL: 84 year old patient appears stated age. Well-developed patient, in no acute distress. HEAD: Atraumatic. Normocephalic. EYES: Extraocular motions intact. No scleral icterus. No injection or drainage. NECK: Trachea midline. Cervical ROM intact. CARDIOVASCULAR: Regular rate and rhythm. RESPIRATORY: ?Nonlabored respirations. ?Speaking in clear, full sentences. ?Clear to auscultation. Breath sounds equal bilaterally. No wheezes, rales, or rhonchi. ? EXTREMITIES: No deformities of left shoulder. No focal tenderness to palpation of left AC joint or left proximal humerus, however patient does have pain and difficulty with abduction of left shoulder. No pain with passive abduction of left shoulder. No focal tenderness left elbow, left wrist, left anatomic snuffbox. No tenderness to palpation of remainder of appendicular skeleton. Strong radial pulses bilaterally and sensation and strength intact in the distribution of the median, ulnar, radial nerves bilaterally. BACK: Nontender without deformity or crepitance. No flank tenderness. NEURO: AOx3. ?Clear speech. ?Moves all 4 extremities appropriately with the exception of left shoulder. SKIN: No rash or erythema of visible areas Initial Vital Signs Initial Vital Signs: Vital Signs Temperature 97.0 F L 09/09/24 09:38 Pulse Rate 65 09/09/24 09:38 Respiratory Rate 14 09/09/24 09:38 Blood Pressure 124/81 09/09/24 09:38 Pulse Oximetry 98 09/09/24 09:38 Oxygen Delivery Method Room Air 09/09/24 09:38 <Salvador Briones MD - Last Filed: 09/20/24 21:03> Initial Vital Signs Initial Vital Signs: Vital Signs Temperature 97.0 F L 09/09/24 09:38 Pulse Rate 65 09/09/24 09:38 Respiratory Rate 14 09/09/24 09:38 Blood Pressure 124/81 09/09/24 09:38 Pulse Oximetry 98 09/09/24 09:38 Oxygen Delivery Method Room Air 09/09/24 09:38 Course <Leonela Hemphill PA-C - Last Filed: 09/09/24 18:52> Orders Ordered: ED Orders 09/09/24 09:42 XR shoulder LT 2+ views Stat Vital Signs Vital signs: Vital Signs - 8 hr 09/09/24 12:16 Temperature 97.9 F Pulse Rate 53 L Respiratory Rate 16 Blood Pressure 163/83 H Pulse Oximetry 98 Oxygen Delivery Method Room Air <Salvador Briones MD - Last Filed: 09/20/24 21:03> Orders Ordered: ED Orders 09/09/24 09:42 XR shoulder LT 2+ views Stat Vital Signs Vital signs: Vital Signs - 8 hr 09/09/24 12:16 Temperature 97.9 F Pulse Rate 53 L Respiratory Rate 16 Blood Pressure 163/83 H Pulse Oximetry 98 Oxygen Delivery Method Room Air MDM - Fall <Leonela Hemphill PA-C - Last Filed: 09/09/24 18:52> Medical Records Attestation: I reviewed the patient's medical records. Imaging Data Left Shoulder XR: Radiologist's Impression: PROCEDURE: XR SHOULDER LT MIN 2V INDICATIONS: fall TECHNIQUE: A total of 3 views of the shoulder were acquired. COMPARISON: None. FINDINGS: Bones: No definite fractures or dislocations but there is moderate arthritic change at the AC joint with slight irregularity of the cortical margins as result, which could obscure visualization of a nondisplaced acute fracture. No suspicious bony lesions. Visualized ribs appear intact. Soft tissues: Several suspicious soft tissue calcifications overlie the greater tuberosity area consistent with calcific bursitis. 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 Calcific bursitis appears present adjacent to the greater tuberosity. Dictated by: Jose Hidalgo M.D. on 09/09/2024 at 10:26 Approved by: Jose Hidalgo M.D. on 09/09/2024 at 10:28 [facility] Narrative Medical decision making narrative: 84-year-old male with a past medical history of CAD, hypertension, GERD, BPH, neuropathy who presents to the emergency department for left shoulder pain after fall yesterday. Differential diagnosis includes but is not limited to left rotator cuff tear, left shoulder fracture, sprain, strain, dislocation, bursitis, etc. On exam patient is in no acute distress, nontoxic appearing, vital signs within normal limits. He has difficulty with abduction of left shoulder. No obvious deformities. Concern for left rotator cuff tear. X-ray obtained in triage reveals no definite acute fracture however there is osteoarthritic change prominent the AC joint that could mask a nondisplaced fracture. He also has calcific bursitis adjacent to the greater tuberosity. After shared decision-making with the patient, we will treat conservatively with left shoulder sling, ibuprofen and Tylenol for pain, hydrocodone for severe breakthrough pain, and follow up with Orthopedics. Patient verbalized understanding of all information is agreeable to this plan. He is ambulatory and stable for discharge home. Discharge Plan Departure Patient Disposition: Home Clinical Impression: Bursitis of left shoulder Sprain of left shoulder Qualifiers: Encounter type: initial encounter Shoulder sprain type: unspecified sprain Qualified Code(s): S43.402A - Unspecified sprain of left shoulder joint, initial encounter Fall Qualifiers: Encounter type: initial encounter Qualified Code(s): W19.XXXA - Unspecified fall, initial encounter Instructions: How to Prevent Falls, DI for Shoulder Sprain Activity Restrictions/Additional Instructions: Dear Mr. Ramirez, Today you were evaluated for a fall causing left shoulder pain. Your x-ray did not show any obvious fractures however due to your chronic arthritis a subtle fracture could be missed, so we are treating you with a sling. I would like you to follow up with [facility] for further management of this left shoulder injury. Please use RICE therapy for your pain in addition to ibuprofen/acetaminophen. Rest the painful area. Ice the area of pain/swelling for at least 15 minutes, 4x a day. Compress the area of swelling using a brace, wrap, or splint if applied. Elevate the painful or swollen extremity by supporting it above the level of the heart with pillows when sitting or laying. Please take Ibuprofen (Motrin/Advil) or Acetaminophen (Tylenol) for pain. These are available over the counter. You may take Ibuprofen 600 mg every 8 hours with food for pain. You may also take Acetaminophen 650 mg every 4-6 hours for pain. Do not exceed 3000 mg of Tylenol a day as this can cause liver damage. Do not drink alcohol with either of these medications. You have also been prescribed hydrocodone-acetaminophen to use for severe breakthrough pain. Please use this in conjunction with ibuprofen and Tylenol. Please follow up with your primary care doctor within the next 2-3 days for ER follow-up. (If you do not have a PCP you can call [phone]. ?to schedule an appointment with an [facility] Primary Care Provider) IF YOU DEVELOP ANY NEW OR WORSENING SYMPTOMS, RETURN TO THE ER! Please read the attached instructions, they highlight more specific treatments and interventions for you at home. Thank you for letting me participate in your care, Leonela Hemphill PA-C You have been prescribed a short course of narcotic medications. These are potentially dangerous and addictive medications that should be used carefully. While on these medications you cannot drive or operate heavy machinery. Additionally, you cannot sign legal documents or perform any duties such as this. Many people get constipated on narcotic medications so it would be advisable to discuss stool softeners with the pharmacist when you olive picker your prescription. Please understand that we cannot provide further refills of narcotics or controlled substances through the ED and your pain management will need to be through your Primary Care Provider Prescriptions: New hydrocodone-acetaminophen 5-325 mg tablet 1 tab PO Q4-6H PRN (Reason: pain) Qty: 12 0RF No Action hydrocodone-acetaminophen 5-325 mg tablet 1 tab PO BEDTIME PRN (Reason: pain) Qty: 20 0RF oxybutynin chloride 5 mg tablet 5 mg PO BID-TID PRN (Reason: bladder spasms) Qty: 7 0RF gabapentin 100 mg capsule 100 mg PO BID Rx Instructions: 100mg q afternoon, 200mg qhs. Referrals: Sony Ring MD [Physician, Orthopedic Surgery] Referral Note: Left shoulder pain Salvador Mishra MD [Primary Care Provider, Family Practice] Stand Alone Forms: Patient Portal/API ED Sign-out <Salvador Briones MD - Last Filed: 09/20/24 21:03> Cosign ED Attending Cosignature Attestation: I was immediately available in the department for consultation. ?This documentation has been reviewed and I agree with assessment and plan. Supervised by Salvador Briones MD
[2024-09-09 12:16] VITALS: BP 163/83; PULSE 53; RESP 16; TEMP 36.6; O2SAT 98
== END 2024-09-09 12:17 | disposition home or self-care (01) ==
PROVIDERS: Emergency Provider Physician Assistant; PCP Family Medicine
DX: S43.402A Unspecified sprain of left shoulder joint, initial encounter (principal); M75.52 Bursitis of left shoulder; W18.30XA Fall on same level, unspecified, initial encounter
CPT/HCPCS: 73030; 99282; 99283